=== PATIENT | male | born 1935 | race Caucasian/White ===

== ENCOUNTER 2019-04-05 21:48 | Emergency (ER) | payer MEDICARE ==
[2019-04-05] MEDS ORDERED: SODIUM CHLORIDE 0.9% 500ML 500 ML IV ONE (22:43)
[2019-04-05 23:01] LABS: BASOPHILS % (AUTO) 0.6 % (0.0-5.0); EOSINOPHILS % (AUTO) 0.8 % (0.0-8.0); HEMATOCRIT 41.8 % (42-54); LYMPHOCYTES % (AUTO) 16.8 % (21.0-51.0); MEAN CORPUSCULAR HEMOGLOBIN 28.6 pg (27.0-33.0); MEAN CORPUSCULAR HGB CONC 32.9 g/dL (32.0-36.0); MEAN CORPUSCULAR VOLUME 86.7 fL (79-99); MONOCYTES % (AUTO) 12.4 % (3.0-13.0); NEUTROPHILS % (AUTO) 69.4 % (40.0-77.0); PLATELET COUNT (AUTO) 452 K/uL (130-400); RED BLOOD CELL COUNT(AUTO) 4.82 MIL/uL (4.50-6.20); RED CELL DISTRIBUTION WIDTH 14.2 % (11.0-15.5); WHITE BLOOD COUNT (AUTO) 9.5 K/uL (4.8-10.8)
[2019-04-05 23:12] LABS: CREATININE 1.4 mg/dL (0.5-1.5); POTASSIUM 4.1 mmol/L (3.5-5.1)
[2019-04-05 23:15] LABS: INR 0.94 (0.85-1.15); PARTIAL THROMBOPLASTIN TIME 30.1 SEC (26.3-35.5); PROTHROMBIN TIME 9.9 SEC (9.6-11.6)
[2019-04-05 23:16] LABS: ALBUMIN 3.7 g/dL (3.5-5.0); BILIRUBIN,TOTAL 0.5 mg/dL (0.2-1.0); TOTAL PROTEIN, SERUM 7.6 g/dL (6.0-8.3)
[2019-04-05 23:39] LABS: B-TYPE NATRIURETIC PEPTIDE 103 pg/mL (0-100)
[2019-04-05 23:43] LABS: APPEARANCE,URINE Clear (CLEAR); BILIRUBIN,URINE Negative (NEGATIVE); COLOR,URINE Yellow (YELLOW); GLUCOSE, URINE (UA) Negative (NEGATIVE); KETONES,URINE Negative (NEGATIVE); LEUKOCYTE ESTERASE ,URINE Small (NEGATIVE); NITRATE,URINE Negative (NEGATIVE); OCCULT BLOOD,URINE Negative (NEGATIVE); PROTEIN,URINE Negative (NEGATIVE)
[2019-04-05 23:51] LABS: BACTERIA,URINE None Seen /HPF (None Seen); RBC,URINE 0-1 /HPF (0-1); SQUAMOUS EPITHELIAL CELL,UR Rare /HPF (0-2); WBC,URINE 0-1 /HPF (0-1)
[2019-04-06] MEDS ORDERED: IOHEXOL-350 75 ML VIAL IV ONE (00:10)
[2019-04-06] MEDS ORDERED: KETOROLAC TROMETHAMINE 15MG/ML ONE (00:59)
[2019-04-06] MEDS ORDERED: TAMSULOSIN HCL 0.4 MG CAP.ER.24H ONE (00:59)
== END 2019-04-06 01:42 | disposition home or self-care (01) ==
LOC: EDH 21:48
DX: N13.39 Other hydronephrosis (principal); N23 Unspecified renal colic; Z98.890 Other specified postprocedural states
CPT/HCPCS: 36415; 74177; 80053; 81001; 82550; 83605; 83690; 83880; 84484; 85025; 85610; 85730; 93005; 96374; 99285; J1885; J7040; Q9967

== ENCOUNTER 2019-04-14 07:58 | Day surgery (SDC) | payer MEDICARE ==
[2019-04-11 12:15] VITALS: BP 146/67
[2019-04-11 13:06] LABS: APPEARANCE,URINE Clear (CLEAR); BILIRUBIN,URINE Negative (NEGATIVE); COLOR,URINE Yellow (YELLOW); GLUCOSE, URINE (UA) Negative (NEGATIVE); KETONES,URINE Negative (NEGATIVE); LEUKOCYTE ESTERASE ,URINE Moderate (NEGATIVE); NITRATE,URINE Negative (NEGATIVE); OCCULT BLOOD,URINE Negative (NEGATIVE); PROTEIN,URINE Negative (NEGATIVE)
[2019-04-11 13:08] LABS: RBC,URINE 0-1 /HPF (0-1)
[2019-04-11 13:09] LABS: BACTERIA,URINE Rare /HPF (None Seen); SQUAMOUS EPITHELIAL CELL,UR Rare /HPF (0-2)
--- NOTE | 2019-04-12 14:07 | NUR ---
ABNORMAL EKG INFORMED DR ZENG REGARDING ABNORMAL EKG RESULTS. OK TO PROCEED WITH PROCEDURE PER DR ZENG.
[~2019-04-14] VITALS: Ht 179.1 cm; Wt 70.6 kg
[2019-04-14] VITALS (18 sets, daily range): BP systolic 118–162; BP diastolic 56–70
[~2019-04-14 07:58] MED LIST: GENTAMICIN 80 MG/NS 100 ML PB 100 ML IV SCH
[2019-04-14] MEDS ORDERED: IOHEXOL-350 50ML VIAL IV ONE (08:23)
[2019-04-14] MEDS ORDERED: LACTATED RINGERS 1000ML 1,000 ML IV ONE (08:28)
[2019-04-14] MEDS: CEFTRIAXONE SODIUM 1 GM IVP SCH ×2 (08:30→09:55)
--- NOTE | 2019-04-14 09:01 | NUR ---
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
[2019-04-14] MEDS ORDERED: PRAV40TA3 PO (09:04)
[2019-04-14] MEDS ORDERED: TAMS-1 PO (09:05)
[2019-04-14] MEDS ORDERED: LEVO500T89 PO (09:06)
[2019-04-14] MEDS ORDERED: DICY20 PO (09:07)
[2019-04-14] MEDS ORDERED: LIDOCAINE PF 2% 5ML ABBOJECT ONE ×2 (09:07→09:48)
[2019-04-14] MEDS ORDERED: FENTANYL CITRATE PF 50 MCG/1 ML 2ML VIAL ONE (09:08)
[2019-04-14] MEDS ORDERED: PROPOFOL 10 MG/ML 20ML VIAL IV ONE (09:08)
[2019-04-14] MEDS ORDERED: MIDAZOLAM HCL 1 MG/ML 2ML VIAL ONE (09:08)
[2019-04-14] MEDS ORDERED: PHENYLEPHRINE HCL 10 MG/ML 1ML VIAL IV ONE (09:12)
[2019-04-14] MEDS ORDERED: EPHEDRINE SULFATE 50 MG/ML AMPULE ONE (10:13)
--- NOTE | 2019-04-14 12:35 | NUR ---
PATIENT WAS ABLE TO VOID WITHOUT DIFFICULTY.PT WAS ASSISTED TO CHANGE INTO HIS CLOTHES.
== END 2019-04-14 12:45 | disposition home or self-care (01) ==
LOC: DAH 07:58
PROVIDERS: ATTEND Urology
DX: N13.0 Hydronephrosis with ureteropelvic junction obstruction (principal); N40.1 Benign prostatic hyperplasia with lower urinary tract symptoms; N13.8 Other obstructive and reflux uropathy; Z79.2 Long term (current) use of antibiotics; Z79.899 Other long term (current) drug therapy; Z87.891 Personal history of nicotine dependence; Z72.89 Other problems related to lifestyle; F15.90 Other stimulant use, unspecified, uncomplicated; Z98.890 Other specified postprocedural states; Z85.46 Personal history of malignant neoplasm of prostate
CPT/HCPCS: 52332; 55700; 71045; 74420; 76942; 81001; 87088; 88305; 93005; 96365; A4215; A4344; A4358; A4600; A5113; C1758; C1769; C2617; J0696; J1580; J2001 ×2; J2250; J2370; J2704; J3010; J3490; J7120 ×2; Q9967

== ENCOUNTER 2019-09-15 07:58 | Day surgery (SDC) | payer MEDICARE ==
[2019-09-13 17:00] VITALS: BP 140/69
[2019-09-13 17:05] LABS: BASOPHILS % (AUTO) 0.4 % (0.0-5.0); EOSINOPHILS % (AUTO) 0.4 % (0.0-8.0); HEMATOCRIT 40.5 % (42-54); LYMPHOCYTES % (AUTO) 31.4 % (21.0-51.0); MEAN CORPUSCULAR HEMOGLOBIN 28.6 pg (27.0-33.0); MEAN CORPUSCULAR VOLUME 86.5 fL (79-99); MONOCYTES % (AUTO) 10.7 % (3.0-13.0); NEUTROPHILS % (AUTO) 57.1 % (40.0-77.0); PLATELET COUNT (AUTO) 466 K/uL (130-400); RED BLOOD CELL COUNT(AUTO) 4.68 MIL/uL (4.50-6.20); RED CELL DISTRIBUTION WIDTH 13.9 % (11.0-15.5); WHITE BLOOD COUNT (AUTO) 5.8 K/uL (4.8-10.8)
[2019-09-13 17:17] LABS: APPEARANCE,URINE CLOUDY (CLEAR); BILIRUBIN,URINE NEGATIVE (NEGATIVE); COLOR,URINE YELLOW (YELLOW); GLUCOSE, URINE (UA) NEGATIVE (NEGATIVE); KETONES,URINE NEGATIVE (NEGATIVE); LEUKOCYTE ESTERASE ,URINE MODERATE (NEGATIVE); NITRATE,URINE NEGATIVE (NEGATIVE); OCCULT BLOOD,URINE LARGE (NEGATIVE); PH,URINE 5.5 (5.0-8.0); PROTEIN,URINE 100 mg/dL (NEGATIVE); UROBILINOGEN,URINE 0.2 mg/dL (0.2-1.0)
[2019-09-13 17:21] LABS: CREATININE 1.5 mg/dL (0.5-1.5)
[2019-09-13 17:23] LABS: BACTERIA,URINE Few /HPF (None Seen)
[2019-09-13 17:24] LABS: SQUAMOUS EPITHELIAL CELL,UR Few /HPF (0-2)
--- NOTE | 2019-09-14 10:26 | NUR ---
BUD OK PER DR. ZENG.
[2019-09-14] MEDS: CEFTRIAXONE SODIUM 1 GM IVP SCH (10:45)
[~2019-09-15] VITALS: Ht 177.8 cm; Wt 68.8 kg
[2019-09-15] VITALS (23 sets, daily range): BP systolic 120–160; BP diastolic 50–88
[~2019-09-15 07:58] MED LIST changes: -GENTAMICIN 80 MG/NS 100 ML PB 100 ML IV SCH; +PRAV20TA4 PO
[2019-09-15] MEDS ORDERED: LACTATED RINGERS 1000ML 1,000 ML IV ONE (08:17)
[2019-09-15] MEDS ORDERED: ROCURONIUM 10MG/1ML SYR 10 MG/ML ML ONE (09:20)
[2019-09-15] MEDS ORDERED: DEXAMETHASONE SOD PHOSPHATE 10MG/ML 1ML VIAL ONE (09:20)
[2019-09-15] MEDS ORDERED: ONDANSETRON HCL 4 MG/2 ML VIAL ONE (09:20)
[2019-09-15] MEDS ORDERED: NEOSTIGMINE 5MG/5ML SYR IV ONE (09:20)
[2019-09-15] MEDS ORDERED: PROPOFOL 10 MG/ML 20ML VIAL IV ONE (09:20)
[2019-09-15] MEDS ORDERED: GLYCOPYRROLATE 1 MG/5 ML SYRINGE ONE (09:20)
[2019-09-15] MEDS ORDERED: LIDOCAINE PF 2% 5ML ABBOJECT ONE (09:20)
[2019-09-15] MEDS ORDERED: IOHEXOL-350 50ML VIAL IV ONE (09:38)
[2019-09-15] MEDS: CEFTRIAXONE SODIUM 1 GM IVP SCH (09:44)
[2019-09-15] MEDS ORDERED: ATROPINE SULFATE 0.1 MG/ML 10 ML SYG IVP ONE (10:50)
== END 2019-09-15 12:29 | disposition home or self-care (01) ==
LOC: DAH 07:58
PROVIDERS: ATTEND Urology
DX: N13.5 Crossing vessel and stricture of ureter without hydronephrosis (principal); N32.0 Bladder-neck obstruction; E78.5 Hyperlipidemia, unspecified; I10 Essential (primary) hypertension; Z85.46 Personal history of malignant neoplasm of prostate; Z72.89 Other problems related to lifestyle; Z79.899 Other long term (current) drug therapy
CPT/HCPCS: 36415; 52332; 71045; 74420; 80048; 81001; 84153; 84154; 85025; 87088; 88300; 93005 ×2; 96365; A4215; A4221; A4222; A4223; A4358; A4663; A4930; A6260; C1758; C1769; C2617; J0696; J1100; J2001; J2405; J2704; J2710; J3490; J7120 ×2; Q9967; J0461

== ENCOUNTER 2019-09-15 18:11 | Emergency (ER) | payer MEDICARE ==
[2019-09-15] MEDS ORDERED: SODIUM CHLORIDE 0.9% 1000ML 1,000 ML IV ONE (19:34)
[2019-09-15] MEDS ORDERED: ACETAMINOPHEN EXTRA STRENGTH 500 MG TABLET ONE (19:35)
[2019-09-15 19:51] LABS: APPEARANCE,URINE Clear (CLEAR); BILIRUBIN,URINE Negative (NEGATIVE); COLOR,URINE Yellow (YELLOW); GLUCOSE, URINE (UA) Negative (NEGATIVE); KETONES,URINE Negative (NEGATIVE); LEUKOCYTE ESTERASE ,URINE Moderate (NEGATIVE); NITRATE,URINE Negative (NEGATIVE); OCCULT BLOOD,URINE Moderate (NEGATIVE); PH,URINE 5.5 (5.0-8.0); PROTEIN,URINE POS 2+ mg/dL (NEGATIVE); UROBILINOGEN,URINE 0.2 mg/dL (0.2-1.0)
[2019-09-15 19:56] LABS: BASOPHILS % (AUTO) 0.3 % (0.0-5.0); HEMATOCRIT 42.4 % (42-54); LYMPHOCYTES % (AUTO) 2.3 % (21.0-51.0); MEAN CORPUSCULAR HEMOGLOBIN 28.3 pg (27.0-33.0); MEAN CORPUSCULAR HGB CONC 33.3 g/dL (32.0-36.0); MEAN CORPUSCULAR VOLUME 85.1 fL (79-99); MONOCYTES % (AUTO) 3.1 % (3.0-13.0); NEUTROPHILS % (AUTO) 94.3 % (40.0-77.0); NUCLEATED RED BLOOD CELLS 0.1 % (0.0-0.19); PLATELET COUNT (AUTO) 419 K/uL (130-400); RED BLOOD CELL COUNT(AUTO) 4.98 MIL/uL (4.50-6.20); RED CELL DISTRIBUTION WIDTH 13.9 % (11.0-15.5); WHITE BLOOD COUNT (AUTO) 16.4 K/uL (4.8-10.8)
[2019-09-15 20:01] LABS: BACTERIA,URINE Few /HPF (None Seen); MUCUS,URINE None Seen LPF (None Seen); SQUAMOUS EPITHELIAL CELL,UR 0-2 /HPF (0-2)
[2019-09-15 20:02] LABS: INR 1.02 (0.85-1.15); PARTIAL THROMBOPLASTIN TIME 24.5 SEC (26.3-35.5); PROTHROMBIN TIME 10.7 SEC (9.6-11.6)
[2019-09-15 20:03] LABS: CREATININE 1.4 mg/dL (0.5-1.5); POTASSIUM 3.9 mmol/L (3.5-5.1)
[2019-09-15 20:07] LABS: ALBUMIN 3.4 g/dL (3.5-5.0); BILIRUBIN,TOTAL 0.8 mg/dL (0.2-1.0); TOTAL PROTEIN, SERUM 7.6 g/dL (6.0-8.3)
[2019-09-15] MEDS ORDERED: CEFTRIAXONE SODIUM 1 GM ONE (20:36)
== END 2019-09-15 21:57 | disposition home or self-care (01) ==
LOC: EDH 18:11
DX: R50.9 Fever, unspecified (principal)
CPT/HCPCS: 36415; 71045; 80053; 81001; 82550; 83605; 84484; 85025; 85610; 85730; 87040 ×2; 87088; 87804 ×2; 93005; 96374; 99285; J0696; J7030

== ENCOUNTER 2020-01-19 08:52 | Day surgery (SDC) | payer MEDICARE ==
[2020-01-09 13:13] LABS: BASOPHILS % (AUTO) 0.6 % (0.0-5.0); HEMATOCRIT 41.4 % (42-54); LYMPHOCYTES % (AUTO) 25.3 % (21.0-51.0); MEAN CORPUSCULAR HGB CONC 30.9 g/dL (32.0-36.0); MEAN CORPUSCULAR VOLUME 87.3 fL (79-99); MONOCYTES % (AUTO) 8.3 % (3.0-13.0); NEUTROPHILS % (AUTO) 64.2 % (40.0-77.0); PLATELET COUNT (AUTO) 535 K/uL (130-400); RED BLOOD CELL COUNT(AUTO) 4.74 MIL/uL (4.50-6.20); RED CELL DISTRIBUTION WIDTH 13.5 % (11.0-15.5)
[2020-01-09 13:21] LABS: CREATININE 1.5 mg/dL (0.5-1.5); POTASSIUM 4.3 mmol/L (3.5-5.1)
[2020-01-09 13:40] LABS: APPEARANCE,URINE CLOUDY (CLEAR); BILIRUBIN,URINE NEGATIVE (NEGATIVE); COLOR,URINE YELLOW (YELLOW); GLUCOSE, URINE (UA) NEGATIVE (NEGATIVE); KETONES,URINE NEGATIVE (NEGATIVE); LEUKOCYTE ESTERASE ,URINE LARGE (NEGATIVE); NITRATE,URINE NEGATIVE (NEGATIVE); OCCULT BLOOD,URINE LARGE (NEGATIVE); PH,URINE 7.5 (5.0-8.0); PROTEIN,URINE 100 mg/dL (NEGATIVE); UROBILINOGEN,URINE 0.2 mg/dL (0.2-1.0)
[2020-01-09 13:47] LABS: BACTERIA,URINE Few /HPF (None Seen); SQUAMOUS EPITHELIAL CELL,UR Few /HPF (0-2); WBC,URINE >100 /HPF (0-1)
[2020-01-09 13:55] VITALS: BP 144/60
--- NOTE | 2020-01-11 15:45 | NUR ---
LABS ABNORMAL URINE REPORTED TO DR. SOTO, MESSAGE LEFT WITH JANN, URINE REPORT FAX TO DR SOTO PER HIS REQUEST . INFORMED THEM TO CALL US BACK IF ANY FURTHER ORDERS.
--- NOTE | 2020-01-11 16:07 | NUR ---
EKG ABNORMAL EKG REPORTED TO DR. SÁNCHEZ, NO FURTHER ORDERS GIVEN OK TO PROCEED WITH PLANNED SURGERY. 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
--- NOTE | 2020-01-12 08:45 | NUR ---
PATIENT CANCEL PER DR FINGER DUE RESISTANT TO PREOP ANTIBIOTIC GIVEN FOR 2 DAYS PRIOR TO SURGERY, DIS AMBULATOR
[2020-01-18 13:47] LABS: APPEARANCE,URINE Clear (CLEAR); BILIRUBIN,URINE Negative (NEGATIVE); COLOR,URINE Yellow (YELLOW); GLUCOSE, URINE (UA) Negative (NEGATIVE); KETONES,URINE Negative (NEGATIVE); LEUKOCYTE ESTERASE ,URINE Moderate (NEGATIVE); NITRATE,URINE Negative (NEGATIVE); OCCULT BLOOD,URINE Small (NEGATIVE); PROTEIN,URINE POS 1+ mg/dL (NEGATIVE); UROBILINOGEN,URINE 0.2 mg/dL (0.2-1.0)
[2020-01-18 14:04] LABS: BACTERIA,URINE Rare /HPF (None Seen); RBC,URINE 0-1 /HPF (0-1)
[2020-01-18 14:05] LABS: SQUAMOUS EPITHELIAL CELL,UR Rare /HPF (0-2)
--- NOTE | 2020-01-18 14:19 | NUR ---
LABS ABNORMAL URINE REPORTED AND FAX TO DR. SOTO. PENDING FURTHER ORDERS IF ANY
--- NOTE | 2020-01-18 14:37 | NUR ---
URINE VERIFIED THAT PT TOOK 7 DAYS OF LEVAQUIN, PER YUVAL AT DR SOTO'S OFFICE NO NEW ORDERS ON ABNORMAL URINE REPORTED TO DR. SOTO TODAY
[~2020-01-19] VITALS: Ht 177.8 cm; Wt 69.2 kg
[2020-01-19] VITALS (15 sets, daily range): BP systolic 101–146; BP diastolic 53–77
[~2020-01-19 08:52] MED LIST changes: +CEFTRIAXONE SODIUM 1 GM IVP SCH; +LACTATED RINGERS 1000ML 1,000 ML IV ONE
[2020-01-19] MEDS ORDERED: LACTATED RINGERS 1000ML 1,000 ML IV ONE (09:25)
[2020-01-19] MEDS: CEFTRIAXONE SODIUM 1 GM ONE ×2 (09:34→13:32)
[2020-01-19] MEDS ORDERED: IOHEXOL-350 50ML VIAL IV ONE (09:42)
[2020-01-19] MEDS ORDERED: GENTAMICIN SULFATE 320 MG in SODIUM CHLORIDE 0.9% 100 ML IV PRN (11:30)
[2020-01-19] MEDS ORDERED: PROPOFOL 10 MG/ML 20ML VIAL IV ONE (13:15)
[2020-01-19] MEDS ORDERED: LIDOCAINE PF 2% 5ML ABBOJECT ONE (13:15)
[2020-01-19] MEDS ORDERED: GLYCOPYRROLATE 1 MG/5 ML SYRINGE ONE (13:43)
[2020-01-19] MEDS ORDERED: ONDANSETRON HCL 4 MG/2 ML VIAL ONE (13:48)
--- NOTE | 2020-01-19 14:50 | NUR ---
post op received pt post op. pt a/o x3 in no distress. will continue to monitor pt until discharge. pt oriented to room and call light with in reach
--- NOTE | 2020-01-19 15:20 | NUR ---
discharge pt taken out via w/c in no distress by joe griffin. pt and spouse given bacitracin and discharge instructions
[2020-05-16] MEDS ORDERED: LEVO500T2 PO (10:27)
== END 2020-01-19 15:30 | disposition home or self-care (01) ==
LOC: DAH 08:52
PROVIDERS: ATTEND Urology
DX: N13.1 Hydronephrosis with ureteral stricture, not elsewhere classified (principal); E78.5 Hyperlipidemia, unspecified; Z85.46 Personal history of malignant neoplasm of prostate
CPT/HCPCS: 36415; 52332; 74018; 80048; 81001 ×2; 84153; 84154; 85025; 87077 ×2; 87088 ×2; 87186 ×2; 93005; 96365; A4213; A4215; A4221; A4222; A4223 ×2; A4600; A4663; A4930; A6260; C1758; C1769; C2617; J0696; J2001; J2405; J2704; J3490; J7030; J7120 ×2; Q9967

== ENCOUNTER 2020-05-17 07:10 | Day surgery (SDC) | payer MEDICARE ==
[2020-05-11 15:56] LABS: BASOPHILS % (AUTO) 0.4 % (0.0-5.0); EOSINOPHILS % (AUTO) 1.2 % (0.0-8.0); HEMATOCRIT 44.4 % (42-54); MEAN CORPUSCULAR VOLUME 87.4 fL (79-99); MONOCYTES % (AUTO) 8.7 % (3.0-13.0); NEUTROPHILS % (AUTO) 65.3 % (40.0-77.0); PLATELET COUNT (AUTO) 498 K/uL (130-400); RED BLOOD CELL COUNT(AUTO) 5.08 MIL/uL (4.50-6.20); RED CELL DISTRIBUTION WIDTH 13.5 % (11.0-15.5); WHITE BLOOD COUNT (AUTO) 7.4 K/uL (4.8-10.8)
[2020-05-11 16:05] LABS: CREATININE 1.3 mg/dL (0.5-1.5); POTASSIUM 4.8 mmol/L (3.5-5.1)
[2020-05-11 16:39] LABS: APPEARANCE,URINE Clear (CLEAR); BILIRUBIN,URINE Negative (NEGATIVE); COLOR,URINE Yellow (YELLOW); GLUCOSE, URINE (UA) Negative (NEGATIVE); KETONES,URINE Negative (NEGATIVE); LEUKOCYTE ESTERASE ,URINE Moderate (NEGATIVE); NITRATE,URINE Negative (NEGATIVE); OCCULT BLOOD,URINE Large (NEGATIVE); PROTEIN,URINE POS 1+ mg/dL (NEGATIVE); UROBILINOGEN,URINE 0.2 mg/dL (0.2-1.0)
[2020-05-11 16:55] LABS: BACTERIA,URINE Few /HPF (None Seen); SQUAMOUS EPITHELIAL CELL,UR Few /HPF (0-2)
[2020-05-16 10:22] VITALS: BP 148/72
--- NOTE | 2020-05-16 10:26 | NUR ---
RE: URINALYSIS FAXED URINE RESULTS TO DR SOTO;'S OFFICE FOR REVIEW. WILL WAIT FOR ANY NEW ORDERS,RESPONSE FROM DR SOTO.
--- NOTE | 2020-05-16 10:30 | NUR ---
report called dr henriquez and spoke to ramírez his nurse for clarification of diagnosis and to see if md aware of urine. pt on levaquin already so is good to proceed with surgery and to use diagnosis from [facility]
[~2020-05-17] VITALS: Ht 177.8 cm; Wt 69.8 kg
[2020-05-17] VITALS (17 sets, daily range): BP systolic 106–157; BP diastolic 48–77
[~2020-05-17 07:10] MED LIST changes: +CEFAZOLIN SODIUM 1 GM VIAL IVP SCH; -CEFTRIAXONE SODIUM 1 GM IVP SCH; -LACTATED RINGERS 1000ML 1,000 ML IV ONE; +LEVO500T2 PO
[2020-05-17] MEDS ORDERED: CEFTRIAXONE SODIUM 1 GM ONE (07:29)
[2020-05-17] MEDS ORDERED: LACTATED RINGERS 1000ML 1,000 ML IV ONE (07:30)
[2020-05-17] MEDS ORDERED: IOHEXOL-350 50ML VIAL IV ONE (08:01)
[2020-05-17] MEDS ORDERED: LIDOCAINE PF 2% 5ML ABBOJECT ONE (09:02)
[2020-05-17] MEDS ORDERED: SUCCINYLCHOLINE 200MG/10ML SYR ONE (09:02)
[2020-05-17] MEDS ORDERED: PROPOFOL 10 MG/ML 20ML VIAL IV ONE (09:03)
[2020-05-17] MEDS ORDERED: FENTANYL CITRATE PF 50 MCG/1 ML 2ML VIAL ONE (09:03)
[2020-05-17] MEDS ORDERED: GLYCOPYRROLATE 1 MG/5 ML SYRINGE ONE (09:37)
[2020-05-17] MEDS ORDERED: ONDANSETRON HCL 4 MG/2 ML VIAL ONE (09:52)
--- NOTE | 2020-05-17 11:10 | NUR ---
PATIENT ARRIVED TO DAY PATIENT VIA STRETCHER BY CHRISTIAN ROBERTS RN. PATIENT AAOX3, RESPIRATIONS UNLABORED, VITAL SIGNS STABLE, DENIES ANY PAIN AT THIS TIME.
--- NOTE | 2020-05-17 11:30 | NUR ---
DISCHARGE INSTRUCTIONS PROVIDED TO PATIENT'S (CHRISTIANO QUINN). FOLLOW UP APPOINTMENT PROVIDED AND HANDOUTS/INSTRUCTIONS PROVIDED TO PATIENT. ALL QUESTIONS/CONCERNS ADDRESSED.
== END 2020-05-17 11:45 | disposition home or self-care (01) ==
LOC: DAH 07:10
PROVIDERS: ATTEND Urology
DX: N13.30 Unspecified hydronephrosis (principal); Z85.46 Personal history of malignant neoplasm of prostate; Z11.59 Encounter for screening for other viral diseases; E78.5 Hyperlipidemia, unspecified; Z79.899 Other long term (current) drug therapy
CPT/HCPCS: 36415; 52332; 74018; 80048; 81001; 84153; 85025; 87088; A4213; A4215; A4221; A4222; A4223; A4358; A4600; A4663; A6260; C1758; C1769; C2617; J0330; J0696; J2001; J2405; J2704; J3010; J3490; J7120 ×2; U0003; Q9967

== ENCOUNTER 2020-10-04 07:06 | Day surgery (SDC) | payer MEDICARE ==
[2020-09-28 11:46] LABS: BASOPHILS % (AUTO) 0.4 % (0.0-5.0); EOSINOPHILS % (AUTO) 0.8 % (0.0-8.0); HEMATOCRIT 44.5 % (42-54); LYMPHOCYTES % (AUTO) 26.4 % (21.0-51.0); MEAN CORPUSCULAR HEMOGLOBIN 28.4 pg (27.0-33.0); MEAN CORPUSCULAR HGB CONC 32.4 g/dL (32.0-36.0); MEAN CORPUSCULAR VOLUME 87.8 fL (79-99); MONOCYTES % (AUTO) 9.2 % (3.0-13.0); NEUTROPHILS % (AUTO) 62.7 % (40.0-77.0); PLATELET COUNT (AUTO) 423 K/uL (130-400); RED BLOOD CELL COUNT(AUTO) 5.07 MIL/uL (4.50-6.20); RED CELL DISTRIBUTION WIDTH 13.4 % (11.0-15.5); WHITE BLOOD COUNT (AUTO) 7.3 K/uL (4.8-10.8)
[2020-09-28 11:51] LABS: APPEARANCE,URINE Clear (CLEAR); BILIRUBIN,URINE Negative (NEGATIVE); COLOR,URINE Yellow (YELLOW); GLUCOSE, URINE (UA) Negative (NEGATIVE); KETONES,URINE Negative (NEGATIVE); LEUKOCYTE ESTERASE ,URINE Trace (NEGATIVE); NITRATE,URINE Negative (NEGATIVE); OCCULT BLOOD,URINE Negative (NEGATIVE); PROTEIN,URINE Negative (NEGATIVE); UROBILINOGEN,URINE 0.2 mg/dL (0.2-1.0)
[2020-09-28 12:02] LABS: CREATININE 1.2 mg/dL (0.5-1.5); POTASSIUM 4.7 mmol/L (3.5-5.1)
[2020-09-28 12:31] LABS: BACTERIA,URINE None Seen /HPF (None Seen); RBC,URINE 0-1 /HPF (0-1); SQUAMOUS EPITHELIAL CELL,UR 0-2 /HPF (0-2); WBC,URINE 0-1 /HPF (0-1)
[2020-10-03 11:14] VITALS: BP 144/70
--- NOTE | 2020-10-03 12:35 | NUR ---
RE: ABNORMAL URINALYSIS/URINE CULTURE RESULTS FAXED RESULTS TO DR SOTO (ESTELA WOOD/JANN) FOR DR SOTO TO REVIEW.
[2020-10-04] VITALS (17 sets, daily range): BP systolic 87–152; BP diastolic 53–77
[~2020-10-04] VITALS: Ht 177.8 cm; Wt 70.9 kg
[2020-10-04] MEDS: CEFTRIAXONE SODIUM 1 GM IVP SCH ×2 (06:00→08:40)
[~2020-10-04 07:06] MED LIST changes: -CEFAZOLIN SODIUM 1 GM VIAL IVP SCH; -LEVO500T2 PO; +PRAV10TA39 PO; -PRAV20TA4 PO
[2020-10-04] MEDS ORDERED: LACTATED RINGERS 1000ML 1,000 ML IV ONE (07:22)
[2020-10-04] MEDS ORDERED: LEVAQUIN PO (08:27)
[2020-10-04] MEDS ORDERED: PROPOFOL 10 MG/ML 20ML VIAL IV ONE (08:29)
[2020-10-04] MEDS ORDERED: LIDOCAINE PF 2% 5ML ABBOJECT ONE (08:29)
[2020-10-04] MEDS ORDERED: GLYCOPYRROLATE 1 MG/5 ML SYRINGE ONE (08:52)
[2020-10-04] MEDS ORDERED: EPINEPHRINE 1 MG/ML AMPULE ONE (08:53)
[2020-10-04] MEDS ORDERED: IOHEXOL-350 50ML VIAL IV ONE (08:57)
[2020-10-04] MEDS ORDERED: EPHEDRINE SULFATE 50 MG/ML AMPULE ONE (08:58)
[2020-10-04] MEDS ORDERED: ONDANSETRON HCL 4 MG/2 ML VIAL ONE (09:10)
--- NOTE | 2020-10-04 10:20 | NUR ---
POST OP RECEIVED PT AND REPORT JUDY JAMES RN FROM PACU. PT IN NO DISTRESS. PT ORIENTED TO ROOM AND CALL LIGHT. WILL CONTINUE TO MONITOR PT. NO BLEEDING FROM MEATUS NOTED
--- NOTE | 2020-10-04 10:50 | NUR ---
DISCHARGE PT AND SPOUSE GIVEN D/C INSTRUCTIONS. BOTH VOICED UNDERSTANDING. PT TAKEN OUT VIA W/C BY JERRY OLIVEIRA IN NO DISTRESS
== END 2020-10-04 10:50 | disposition home or self-care (01) ==
LOC: DAH 07:06
PROVIDERS: ATTEND Urology
DX: N13.5 Crossing vessel and stricture of ureter without hydronephrosis (principal); Z20.828 Contact with and (suspected) exposure to other viral communicable diseases; C61 Malignant neoplasm of prostate; N32.0 Bladder-neck obstruction; E78.5 Hyperlipidemia, unspecified; Z85.46 Personal history of malignant neoplasm of prostate; Z98.890 Other specified postprocedural states; Z87.891 Personal history of nicotine dependence
CPT/HCPCS: 36415; 52332; 74018; 80048; 81001; 84153; 84154; 85025; 87088; A4215; A4221; A4222; A4223; A4358; A4600; A4663; A6260; C1769; C2617; C9803; J0171; J0696; J2001; J2405; J2704; J3490 ×2; J7120 ×2; U0003; Q9967

== ENCOUNTER 2021-03-14 07:20 | Observation (INO) | payer MEDICARE ==
[2021-03-08 11:36] LABS: CREATININE 1.2 mg/dL (0.5-1.5); POTASSIUM 4.8 mmol/L (3.5-5.1)
[2021-03-08 13:09] LABS: APPEARANCE,URINE Clear (CLEAR); BILIRUBIN,URINE Negative (NEGATIVE); COLOR,URINE Yellow (YELLOW); GLUCOSE, URINE (UA) Negative (NEGATIVE); KETONES,URINE Negative (NEGATIVE); LEUKOCYTE ESTERASE ,URINE Trace (NEGATIVE); NITRATE,URINE Negative (NEGATIVE); OCCULT BLOOD,URINE Large (NEGATIVE); PROTEIN,URINE POS 1+ mg/dL (NEGATIVE); UROBILINOGEN,URINE 0.2 mg/dL (0.2-1.0)
[2021-03-08 13:35] LABS: RBC,URINE >100 /HPF (0-1)
[2021-03-08 13:36] LABS: BACTERIA,URINE Rare /HPF (None Seen); SQUAMOUS EPITHELIAL CELL,UR Rare /HPF (0-2); WBC,URINE 0-1 /HPF (0-1)
[2021-03-13 11:57] VITALS: BP 146/67
[~2021-03-14] VITALS: Ht 177.8 cm; Wt 68.0 kg
[2021-03-14] VITALS (30 sets, daily range): BP systolic 47–165; BP diastolic 19–83
[2021-03-14] MEDS ORDERED: LACTATED RINGERS 1000ML 1,000 ML IV ONE ×2 (07:55→14:17)
[2021-03-14] MEDS ORDERED: LEVOFLOXACIN 500 MG/D5W 100 ML 100 ML IV PRN (08:00)
[2021-03-14] MEDS ORDERED: IOHEXOL-350 50ML VIAL IV ONE (08:00)
[2021-03-14 08:07] LABS: BASOPHILS % (AUTO) 0.6 % (0.0-5.0); EOSINOPHILS % (AUTO) 3.3 % (0.0-8.0); HEMATOCRIT 44.6 % (42-54); LYMPHOCYTES % (AUTO) 43.4 % (21.0-51.0); MEAN CORPUSCULAR HEMOGLOBIN 28.6 pg (27.0-33.0); MEAN CORPUSCULAR HGB CONC 32.1 g/dL (32.0-36.0); MEAN CORPUSCULAR VOLUME 89.2 fL (79-99); MONOCYTES % (AUTO) 12.8 % (3.0-13.0); NEUTROPHILS % (AUTO) 39.3 % (40.0-77.0); PLATELET COUNT (AUTO) 432 K/uL (130-400); RED CELL DISTRIBUTION WIDTH 13.6 % (11.0-15.5); WHITE BLOOD COUNT (AUTO) 6.7 K/uL (4.8-10.8)
[2021-03-14] MEDS: CEFTRIAXONE SODIUM 1 GM IVP ONE ×2 (08:23→08:55)
[2021-03-14] MEDS ORDERED: SUCCINYLCHOLINE 200MG/10ML SYR ONE (08:27)
[2021-03-14] MEDS ORDERED: LIDOCAINE PF 2% 5ML ABBOJECT ONE (08:27)
[2021-03-14] MEDS ORDERED: DEXAMETHASONE SOD PHOSPHATE 10MG/ML 1ML VIAL ONE (08:27)
[2021-03-14] MEDS ORDERED: ONDANSETRON HCL 4 MG/2 ML VIAL ONE (08:28)
[2021-03-14] MEDS ORDERED: GLYCOPYRROLATE 1 MG/5 ML SYRINGE ONE (08:28)
[2021-03-14] MEDS ORDERED: NEOSTIGMINE 5MG/5ML SYR IV ONE (08:28)
[2021-03-14] MEDS ORDERED: PROPOFOL 10 MG/ML 20ML VIAL IV ONE (08:28)
[2021-03-14] MEDS ORDERED: FENTANYL CITRATE PF 50 MCG/1 ML 2ML VIAL ONE (08:29)
[2021-03-14] MEDS ORDERED: ROCURONIUM 10MG/1ML SYR 10 MG/ML ML ONE (08:29)
[2021-03-15 04:00] VITALS: BP 118/68
[2021-03-15 05:51] LABS: CREATININE 1.2 mg/dL (0.5-1.5); MAGNESIUM 1.8 mg/dL (1.80-2.40); POTASSIUM 4.2 mmol/L (3.5-5.1)
[2021-03-15] MEDS ORDERED: MAGNESIUM 2GM PREMIX 50ML 50 ML IV PRN (06:00)
[2021-03-15] MEDS ORDERED: ACETAMINOPHEN 325 MG TAB PO PRN (06:15)
[2021-03-15] MEDS ORDERED: ONDANSETRON HCL 4 MG/2 ML VIAL IVP PRN (06:15)
[2021-03-15 07:58] VITALS: BP 148/80
[2021-03-15] MEDS ORDERED: FAMOTIDINE 20MG TAB 20 MG TAB PO SCH (09:00)
== END 2021-03-15 12:38 | disposition home or self-care (01) ==
LOC: DAH 07:20 → DAHIP 07:21 → 4BH 15:14
PROVIDERS: ADMIT Internal Medicine; ATTEND Internal Medicine
DX: N13.5 Crossing vessel and stricture of ureter without hydronephrosis (principal); Z20.822 Contact with and (suspected) exposure to COVID-19; N32.0 Bladder-neck obstruction; C61 Malignant neoplasm of prostate; I44.1 Atrioventricular block, second degree; E78.5 Hyperlipidemia, unspecified; Z79.899 Other long term (current) drug therapy
CPT/HCPCS: 36415 ×3; 52332; 74018; 80048 ×2; 81001; 83735; 84153; 85025; 87088; 93005 ×2; 93306; 93356; 96360; 96361; A4215 ×2; A4216; A4221 ×2; A4222; A4223 ×2; A4354; A4358; A4600; A4663; A6260; C1758; C1769; C2617; C9803; G0378 ×26; J0330; J0696; J1100; J2001; J2405; J2704; J2710; J3010; J3490; J7030; J7120 ×2; U0003; Q9967

== ENCOUNTER 2021-09-26 07:25 | Day surgery (SDC) | payer MEDICARE ==
[2021-09-23 13:00] VITALS: BP 113/66
[2021-09-23 13:13] LABS: APPEARANCE,URINE Turbid (CLEAR); BILIRUBIN,URINE Negative (NEGATIVE); COLOR,URINE Yellow (YELLOW); GLUCOSE, URINE (UA) Negative (NEGATIVE); KETONES,URINE Negative (NEGATIVE); LEUKOCYTE ESTERASE ,URINE Large (NEGATIVE); NITRATE,URINE Negative (NEGATIVE); OCCULT BLOOD,URINE Large (NEGATIVE); PH,URINE 5.5 (5.0-8.0); PROTEIN,URINE POS 2+ mg/dL (NEGATIVE); UROBILINOGEN,URINE 0.2 mg/dL (0.2-1.0)
[2021-09-23 13:19] LABS: BASOPHILS % (AUTO) 0.5 % (0.0-5.0); EOSINOPHILS % (AUTO) 0.7 % (0.0-8.0); HEMATOCRIT 47.2 % (42-54); LYMPHOCYTES % (AUTO) 24.3 % (21.0-51.0); MEAN CORPUSCULAR HEMOGLOBIN 28.6 pg (27.0-33.0); MEAN CORPUSCULAR VOLUME 89.4 fL (79-99); MONOCYTES % (AUTO) 7.4 % (3.0-13.0); NEUTROPHILS % (AUTO) 66.4 % (40.0-77.0); PLATELET COUNT (AUTO) 462 K/uL (130-400); RED BLOOD CELL COUNT(AUTO) 5.28 MIL/uL (4.50-6.20); RED CELL DISTRIBUTION WIDTH 13.5 % (11.0-15.5); WHITE BLOOD COUNT (AUTO) 9.5 K/uL (4.8-10.8)
[2021-09-23 13:29] LABS: PROTHROMBIN TIME 10.9 SEC (9.6-11.6)
[2021-09-23 13:30] LABS: PARTIAL THROMBOPLASTIN TIME 27.9 SEC (26.3-35.5)
[2021-09-23 13:35] LABS: BACTERIA,URINE Rare /HPF (None Seen); RBC,URINE 26-50 /HPF (0-1)
[2021-09-23 13:36] LABS: SQUAMOUS EPITHELIAL CELL,UR Rare /HPF (0-2)
[2021-09-23 13:38] LABS: CREATININE 1.3 mg/dL (0.5-1.5); POTASSIUM 4.3 mmol/L (3.5-5.1)
[~2021-09-26] VITALS: Ht 177.8 cm; Wt 69.2 kg
[2021-09-26] VITALS (16 sets, daily range): BP systolic 119–172; BP diastolic 61–97
[2021-09-26] MEDS ORDERED: GENTAMICIN 80 MG/NS 100 ML PB 100 ML IV PRN (08:00)
[2021-09-26] MEDS ORDERED: LACTATED RINGERS 1000ML 1,000 ML IV ONE (08:40)
[2021-09-26] MEDS: CEFTRIAXONE 1G VIAL IVP ONE ×2 (08:53→09:55)
[2021-09-26] MEDS ORDERED: APIX2.5T PO (08:56)
[2021-09-26] MEDS ORDERED: LIDOCAINE PF 100MG/5ML (2%) SYRINGE 5ML ONE (09:32)
[2021-09-26] MEDS ORDERED: FENTANYL CITRATE PF 50 MCG/1 ML 2ML VIAL ONE (09:33)
[2021-09-26] MEDS ORDERED: PROPOFOL 10 MG/ML 20ML VIAL IV ONE (09:33)
[2021-09-26] MEDS ORDERED: GLYCOPYRROLATE 1 MG/5 ML SYRINGE ONE (09:47)
[2021-09-26] MEDS ORDERED: 0.9%NACL 10ML VIAL ONE (10:05)
[2021-09-26] MEDS ORDERED: PHENYLEPHRINE HCL 10 MG/ML 1ML VIAL IV ONE (10:05)
[2021-09-26] MEDS ORDERED: IOHEXOL-350 50ML VIAL IV ONE (10:14)
== END 2021-09-26 12:10 | disposition home or self-care (01) ==
LOC: DAH 07:25
PROVIDERS: ATTEND Urology
DX: N20.1 Calculus of ureter (principal); N13.5 Crossing vessel and stricture of ureter without hydronephrosis; Z20.822 Contact with and (suspected) exposure to COVID-19; N32.0 Bladder-neck obstruction; N39.3 Stress incontinence (female) (male); I10 Essential (primary) hypertension; I25.2 Old myocardial infarction; E66.01 Morbid (severe) obesity due to excess calories; I48.91 Unspecified atrial fibrillation; E78.5 Hyperlipidemia, unspecified; I45.10 Unspecified right bundle-branch block; I44.0 Atrioventricular block, first degree; Z90.79 Acquired absence of other genital organ(s); Z79.01 Long term (current) use of anticoagulants; Z85.46 Personal history of malignant neoplasm of prostate; Z92.3 Personal history of irradiation; Z79.899 Other long term (current) drug therapy
CPT/HCPCS: 36415; 71045; 74018; 80048; 81001; 84153; 85025; 85610; 85730; 87088; 87635; 93005; 96365; C1769; C2617; C9803; J0696; J1580; J2001; J2370; J2704; J3010; J3490; J7120; Q9967

== ENCOUNTER 2021-09-26 19:28 | Inpatient (IN) | payer MEDICARE ==
[~2021-09-26] VITALS: Ht 177.8 cm; Wt 69.6 kg
[~2021-09-26 19:28] MED LIST changes: +APIX2.5T PO; -PRAV10TA39 PO
[2021-09-26] MEDS ORDERED: ACETAMINOPHEN 500 MG TABLET ONE (21:24)
[2021-09-26] MEDS ORDERED: ZOSYN 3.375GM+NS 50ML 50 ML ONE (21:24)
[2021-09-26 21:27] LABS: ABG BASE EXCESS -2.1 mmol/L (-2.0-3.0); ABG OXYGEN SATURATION 94.8 % (95.0-99.0); ABG PCO2 32 mmHg (35-48)
[2021-09-26 21:30] LABS: APPEARANCE,URINE Cloudy (CLEAR); BILIRUBIN,URINE Negative (NEGATIVE); COLOR,URINE Yellow (YELLOW); GLUCOSE, URINE (UA) Negative (NEGATIVE); KETONES,URINE Negative (NEGATIVE); LEUKOCYTE ESTERASE ,URINE Moderate (NEGATIVE); NITRATE,URINE Negative (NEGATIVE); OCCULT BLOOD,URINE Large (NEGATIVE); PROTEIN,URINE POS 2+ mg/dL (NEGATIVE); UROBILINOGEN,URINE 0.2 mg/dL (0.2-1.0)
[2021-09-26] MEDS ORDERED: 0.9%NACL 1000ML 1,000 ML IV ONE (21:30)
[2021-09-26] MEDS ORDERED: ZOSYN 3.375GM +NS 50ML IV ONE (21:30)
[2021-09-26] MEDS ORDERED: ACETAMINOPHEN 500 MG TABLET PO ONE (21:30)
[2021-09-26 21:31] LABS: BASOPHILS % (AUTO) 0.2 % (0.0-5.0); EOSINOPHILS % (AUTO) 0.2 % (0.0-8.0); HEMATOCRIT 41.9 % (42-54); LYMPHOCYTES % (AUTO) 4.2 % (21.0-51.0); MEAN CORPUSCULAR HEMOGLOBIN 28.7 pg (27.0-33.0); MEAN CORPUSCULAR HGB CONC 33.2 g/dL (32.0-36.0); MEAN CORPUSCULAR VOLUME 86.4 fL (79-99); MONOCYTES % (AUTO) 6.7 % (3.0-13.0); NEUTROPHILS % (AUTO) 87.7 % (40.0-77.0); PLATELET COUNT (AUTO) 376 K/uL (130-400); RED BLOOD CELL COUNT(AUTO) 4.85 MIL/uL (4.50-6.20); RED CELL DISTRIBUTION WIDTH 13.6 % (11.0-15.5); WHITE BLOOD COUNT (AUTO) 26.9 K/uL (4.8-10.8)
[2021-09-26 21:40] LABS: BACTERIA,URINE Moderate /HPF (None Seen); MUCUS,URINE Few LPF (None Seen); SQUAMOUS EPITHELIAL CELL,UR Moderate /HPF (0-2)
[2021-09-26 21:43] LABS: INR 1.09 (0.85-1.15); PROTHROMBIN TIME 11.8 SEC (9.6-11.6)
[2021-09-26 21:49] LABS: CREATININE 1.5 mg/dL (0.5-1.5); POTASSIUM 4.2 mmol/L (3.5-5.1)
[2021-09-26 21:53] LABS: ALBUMIN 3.3 g/dL (3.5-5.0); BILIRUBIN,TOTAL 0.9 mg/dL (0.2-1.0); TOTAL PROTEIN, SERUM 7.3 g/dL (6.0-8.3)
[2021-09-26 21:56] LABS: B-TYPE NATRIURETIC PEPTIDE 285 pg/mL (0-100)
[2021-09-26] MEDS ORDERED: NITROGLYCERIN 0.4 MG SL TAB SL PRN (23:00)
[2021-09-26] MEDS ORDERED: ONDANSETRON 4MG INJ IV PRN (23:00)
[2021-09-26] MEDS ORDERED: 0.9%NACL 1000ML 1,000 ML IV SCH (23:00)
[2021-09-26] MEDS ORDERED: ACETAMINOPHEN 325 MG TAB PO PRN ×2 (23:00)
[2021-09-27] MEDS ORDERED: AZITHROMYCIN 500MG VIAL IVPB SCH (02:30)
[2021-09-27] MEDS ORDERED: 0.9% NACL 250ML IVPB SCH (02:30)
[2021-09-27] MEDS ORDERED: AZITHROMYCIN 500MG+NS 250ML 250 ML IV ONE (02:38)
[2021-09-27] MEDS: AZITHROMYCIN 500MG+NS 250ML 250 ML IV SCH (02:58)
[2021-09-27] MEDS ORDERED: IPRATROPIUM/ALBUTEROL SULFATE 3 ML SOLUTION IH PRN (03:00)
[2021-09-27 03:57] VITALS: BP 115/48
[2021-09-27 04:29] LABS: BASOPHILS % (AUTO) 0.2 % (0.0-5.0); EOSINOPHILS % (AUTO) 0.1 % (0.0-8.0); HEMATOCRIT 37.8 % (42-54); MEAN CORPUSCULAR HEMOGLOBIN 28.4 pg (27.0-33.0); MEAN CORPUSCULAR HGB CONC 31.7 g/dL (32.0-36.0); MEAN CORPUSCULAR VOLUME 89.4 fL (79-99); NEUTROPHILS % (AUTO) 91.3 % (40.0-77.0); PLATELET COUNT (AUTO) 310 K/uL (130-400); RED BLOOD CELL COUNT(AUTO) 4.23 MIL/uL (4.50-6.20); RED CELL DISTRIBUTION WIDTH 13.8 % (11.0-15.5); WHITE BLOOD COUNT (AUTO) 17.2 K/uL (4.8-10.8)
[2021-09-27] MEDS: ZOSYN 3.375GM +NS 50ML IV SCH ×3 (04:31→21:12)
[2021-09-27 04:45] LABS: CREATININE 1.5 mg/dL (0.5-1.5); POTASSIUM 4.5 mmol/L (3.5-5.1)
[2021-09-27 04:57] LABS: ALBUMIN 2.6 g/dL (3.5-5.0); BILIRUBIN,TOTAL 1.2 mg/dL (0.2-1.0); MAGNESIUM 1.8 mg/dL (1.80-2.40); TOTAL PROTEIN, SERUM 6.1 g/dL (6.0-8.3)
[2021-09-27] MEDS ORDERED: MAGNESIUM 2GM PREMIX 50ML 50 ML IV PRN (05:30)
[2021-09-27] MEDS ORDERED: ATROPINE 1MG SYG IVP ONE (05:42)
[2021-09-27] MEDS ORDERED: 0.9%NACL 1000ML 1,000 ML IV SCH (06:30)
[2021-09-27 08:25] VITALS: BP 124/55
[2021-09-27 12:01] VITALS: BP 110/62
[2021-09-27] MEDS: FAMOTIDINE 20MG TAB PO SCH ×2 (13:29→21:11)
[2021-09-27 16:00] VITALS: BP 141/69
[2021-09-27 19:20] VITALS: BP 140/68
[2021-09-28 00:02] VITALS: BP 119/53
[2021-09-28] MEDS ORDERED: 0.9% NACL 250ML 250 ML ONE (02:35)
[2021-09-28] MEDS: AZITHROMYCIN 500MG+NS 250ML 250 ML IV SCH (02:40)
[2021-09-28 04:00] VITALS: BP 157/72
[2021-09-28 05:49] LABS: BASOPHILS % (AUTO) 0.2 % (0.0-5.0); EOSINOPHILS % (AUTO) 0.4 % (0.0-8.0); HEMATOCRIT 39.3 % (42-54); LYMPHOCYTES % (AUTO) 18.4 % (21.0-51.0); MEAN CORPUSCULAR HEMOGLOBIN 27.8 pg (27.0-33.0); MEAN CORPUSCULAR HGB CONC 32.1 g/dL (32.0-36.0); MEAN CORPUSCULAR VOLUME 86.8 fL (79-99); MONOCYTES % (AUTO) 8.6 % (3.0-13.0); NEUTROPHILS % (AUTO) 71.8 % (40.0-77.0); PLATELET COUNT (AUTO) 335 K/uL (130-400); RED BLOOD CELL COUNT(AUTO) 4.53 MIL/uL (4.50-6.20); RED CELL DISTRIBUTION WIDTH 13.9 % (11.0-15.5); WHITE BLOOD COUNT (AUTO) 9.8 K/uL (4.8-10.8)
[2021-09-28] MEDS: ZOSYN 3.375GM +NS 50ML IV SCH (05:50)
[2021-09-28 06:11] LABS: ALBUMIN 2.8 g/dL (3.5-5.0); BILIRUBIN,TOTAL 0.5 mg/dL (0.2-1.0); CREATININE 1.5 mg/dL (0.5-1.5); MAGNESIUM 2.1 mg/dL (1.80-2.40); POTASSIUM 4.2 mmol/L (3.5-5.1); TOTAL PROTEIN, SERUM 6.5 g/dL (6.0-8.3)
[2021-09-28 08:00] VITALS: BP 139/76
[2021-09-28] MEDS: FAMOTIDINE 20MG TAB PO SCH (09:07)
[2021-09-28 12:15] VITALS: BP 141/76
[2021-09-28] MEDS ORDERED: CIPR500T10 PO (12:48)
== END 2021-09-28 15:15 | disposition home or self-care (01) | DRG 853 ==
LOC: EDH 19:28 → EDHIP 22:30 → 3BH 09-27 02:28 → 4CH 09-27 09:49
PROVIDERS: ADMIT Internal Medicine; ATTEND Internal Medicine
PROC: 0TP98DZ Removal of Intraluminal Device from Ureter, Via Natural or Artificial Opening Endoscopic (ICD-10-PCS; principal; 2021-09-26)
PROC: 0T768DZ Dilation of Right Ureter with Intraluminal Device, Via Natural or Artificial Opening Endoscopic (ICD-10-PCS; 2021-09-26)
DX: A41.9 Sepsis, unspecified organism (principal); J96.01 Acute respiratory failure with hypoxia; N39.0 Urinary tract infection, site not specified; Z20.822 Contact with and (suspected) exposure to COVID-19; N18.31 Chronic kidney disease, stage 3a; I44.1 Atrioventricular block, second degree; I48.0 Paroxysmal atrial fibrillation; I45.10 Unspecified right bundle-branch block; R31.0 Gross hematuria; Z79.01 Long term (current) use of anticoagulants; Z92.3 Personal history of irradiation; Z85.820 Personal history of malignant melanoma of skin; Z85.46 Personal history of malignant neoplasm of prostate; Z87.891 Personal history of nicotine dependence; Z86.73 Personal history of transient ischemic attack (TIA), and cerebral infarction without residual deficits; I12.9 Hypertensive chronic kidney disease with stage 1 through stage 4 chronic kidney disease, or unspecified chronic kidney disease
CPT/HCPCS: 36415; 36600; 71045; 74018; 80048; 80053; 81001; 82550; 82803; 83605; 83690; 83735; 83874; 83880; 84145; 84153; 84484; 85025; 85610; 85730; 87040; 87088; 87635; 93005; 99291; C9803; G0378; J0456; J0461; J2543; J3475; J7050

== ENCOUNTER 2022-03-27 07:02 | Day surgery (SDC) | payer MEDICARE ==
[2022-03-21 12:01] LABS: BASOPHILS % (AUTO) 0.5 % (0.0-5.0); EOSINOPHILS % (AUTO) 0.9 % (0.0-8.0); HEMATOCRIT 42.1 % (42-54); LYMPHOCYTES % (AUTO) 19.8 % (21.0-51.0); MEAN CORPUSCULAR HEMOGLOBIN 27.9 pg (27.0-33.0); MEAN CORPUSCULAR HGB CONC 31.8 g/dL (32.0-36.0); MEAN CORPUSCULAR VOLUME 87.5 fL (79-99); MONOCYTES % (AUTO) 8.5 % (3.0-13.0); NEUTROPHILS % (AUTO) 69.7 % (40.0-77.0); PLATELET COUNT (AUTO) 425 K/uL (130-400); RED BLOOD CELL COUNT(AUTO) 4.81 MIL/uL (4.50-6.20); RED CELL DISTRIBUTION WIDTH 13.5 % (11.0-15.5); WHITE BLOOD COUNT (AUTO) 9.7 K/uL (4.8-10.8)
[2022-03-21 12:02] LABS: APPEARANCE,URINE Clear (CLEAR); BILIRUBIN,URINE Negative (NEGATIVE); COLOR,URINE Yellow (YELLOW); GLUCOSE, URINE (UA) Negative (NEGATIVE); KETONES,URINE Negative (NEGATIVE); LEUKOCYTE ESTERASE ,URINE Small (NEGATIVE); NITRATE,URINE Negative (NEGATIVE); OCCULT BLOOD,URINE Trace (NEGATIVE); PROTEIN,URINE POS 1+ mg/dL (NEGATIVE); UROBILINOGEN,URINE 0.2 mg/dL (0.2-1.0)
[2022-03-21 12:11] LABS: CREATININE 1.5 mg/dL (0.5-1.5); POTASSIUM 4.9 mmol/L (3.5-5.1)
[2022-03-21 12:30] LABS: BACTERIA,URINE Rare /HPF (None Seen); RBC,URINE 0-1 /HPF (0-1)
[2022-03-21 12:31] LABS: SQUAMOUS EPITHELIAL CELL,UR 0-2 /HPF (0-2)
[2022-03-26 11:31] VITALS: BP 134/69
[2022-03-27] VITALS (25 sets, daily range): BP systolic 124–155; BP diastolic 57–84
[~2022-03-27] VITALS: Ht 177.8 cm; Wt 70.0 kg
[~2022-03-27 07:02] MED LIST changes: +AMIO100T4 PO; -APIX2.5T PO; +GENTAMICIN 80 MG/NS 100 ML PB 100 ML IV SCH; +LEVO500T90 PO
[2022-03-27] MEDS ORDERED: LACTATED RINGERS 1000ML 1,000 ML IV ONE (07:40)
[2022-03-27] MEDS ORDERED: IOHEXOL-350 50ML VIAL IV ONE (07:51)
[2022-03-27] MEDS: CEFTRIAXONE 1G VIAL IVP SCH ×2 (07:55→09:00)
[2022-03-27] MEDS ORDERED: PROPOFOL 10 MG/ML 20ML VIAL IV ONE (08:39)
[2022-03-27] MEDS ORDERED: MIDAZOLAM HCL 1 MG/ML 2ML VIAL ONE (08:39)
[2022-03-27] MEDS ORDERED: FENTANYL CITRATE PF 50 MCG/1 ML 2ML VIAL ONE (08:39)
[2022-03-27] MEDS ORDERED: LIDOCAINE PF 100MG/5ML (2%) SYRINGE 5ML ONE (08:39)
[2022-03-27] MEDS ORDERED: EPHEDRINE SULFATE 50 MG/ML AMPULE ONE (09:15)
== END 2022-03-27 15:45 | disposition home or self-care (01) ==
LOC: DAH 07:02
PROVIDERS: ATTEND Urology
DX: N13.5 Crossing vessel and stricture of ureter without hydronephrosis (principal); N32.0 Bladder-neck obstruction; C61 Malignant neoplasm of prostate; E78.5 Hyperlipidemia, unspecified; I48.91 Unspecified atrial fibrillation; I44.2 Atrioventricular block, complete; Z98.890 Other specified postprocedural states
CPT/HCPCS: 36415; 52332; 74018; 80048; 81001; 84153; 85025; 87088; 87635; 93005; A4215; A4221; A4222; A4223; A4358; A4600; C1758; C1769; C2617; C9803; J0696; J2001; J2250; J2704; J3010; J3490; J7030; J7120; J1580; Q9967

== ENCOUNTER 2022-09-11 09:33 | Day surgery (SDC) | payer MEDICARE ==
[2022-09-10 11:27] LABS: BASOPHILS % (AUTO) 0.7 % (0.0-5.0); EOSINOPHILS % (AUTO) 2.4 % (0.0-8.0); HEMATOCRIT 41.1 % (42-54); MEAN CORPUSCULAR HEMOGLOBIN 26.7 pg (27.0-33.0); MEAN CORPUSCULAR HGB CONC 31.1 g/dL (32.0-36.0); MEAN CORPUSCULAR VOLUME 85.8 fL (79-99); MONOCYTES % (AUTO) 11.4 % (3.0-13.0); NEUTROPHILS % (AUTO) 61.8 % (40.0-77.0); PLATELET COUNT (AUTO) 386 K/uL (130-400); RED BLOOD CELL COUNT(AUTO) 4.79 MIL/uL (4.50-6.20); RED CELL DISTRIBUTION WIDTH 14.8 % (11.0-15.5); WHITE BLOOD COUNT (AUTO) 8.6 K/uL (4.8-10.8)
[2022-09-10 11:37] LABS: CREATININE 1.4 mg/dL (0.5-1.5); POTASSIUM 5.1 mmol/L (3.5-5.1)
[2022-09-10 11:48] LABS: APPEARANCE,URINE CLEAR (CLEAR); BILIRUBIN,URINE NEGATIVE (NEGATIVE); COLOR,URINE LIGHT-YELLOW (YELLOW); GLUCOSE, URINE (UA) NEGATIVE (NEGATIVE); KETONES,URINE NEGATIVE (NEGATIVE); LEUKOCYTE ESTERASE ,URINE 25 Leu/uL (NEGATIVE); NITRATE,URINE NEGATIVE (NEGATIVE); OCCULT BLOOD,URINE SMALL (NEGATIVE); PROTEIN,URINE 10 mg/dL (NEGATIVE); UROBILINOGEN,URINE 0.2 mg/dL (0.2-1.0)
[2022-09-10 12:03] LABS: BACTERIA,URINE RARE /HPF (None Seen); MUCUS,URINE RARE LPF (None Seen); SQUAMOUS EPITHELIAL CELL,UR RARE /HPF (0-2)
[2022-09-10 12:33] VITALS: BP 144/72
[2022-09-11] VITALS (15 sets, daily range): BP systolic 116–148; BP diastolic 60–82
[~2022-09-11] VITALS: Ht 177.8 cm; Wt 70.5 kg
[~2022-09-11 09:33] MED LIST changes: +CEFTRIAXONE 1G VIAL IVPB SCH; +LEVO-70 PO; -LEVO500T90 PO; +PRAV10TA39 PO
[2022-09-11] MEDS ORDERED: CEFTRIAXONE 1G VIAL ONE (09:54)
[2022-09-11] MEDS ORDERED: LACTATED RINGERS 1000ML 1,000 ML IV ONE (09:54)
[2022-09-11] MEDS ORDERED: IOHEXOL-350 50ML VIAL IV ONE (11:52)
[2022-09-11] MEDS ORDERED: MIDAZOLAM HCL 1 MG/ML 2ML VIAL ONE (11:56)
[2022-09-11] MEDS ORDERED: LIDOCAINE PF 100MG/5ML (2%) SYRINGE 5ML ONE (11:56)
[2022-09-11] MEDS ORDERED: DEXAMETHASONE SOD PHOSPHATE 10MG/ML 1ML VIAL ONE (11:56)
[2022-09-11] MEDS ORDERED: ONDANSETRON 4MG INJ ONE (11:56)
[2022-09-11] MEDS ORDERED: PROPOFOL 10 MG/ML 20ML VIAL IV ONE (11:56)
[2022-09-11] MEDS ORDERED: FENTANYL CITRATE PF 50 MCG/1 ML 5ML AMP IV ONE (12:20)
[2022-09-11] MEDS ORDERED: KETOROLAC 30MG VIAL (30MG/ML) ONE (12:21)
== END 2022-09-11 14:45 | disposition home or self-care (01) ==
LOC: DAH 09:33
PROVIDERS: ATTEND Urology
DX: N13.5 Crossing vessel and stricture of ureter without hydronephrosis (principal); Z20.822 Contact with and (suspected) exposure to COVID-19; N32.0 Bladder-neck obstruction; C61 Malignant neoplasm of prostate; I44.7 Left bundle-branch block, unspecified; E78.5 Hyperlipidemia, unspecified; I48.91 Unspecified atrial fibrillation; Z79.899 Other long term (current) drug therapy; Z85.46 Personal history of malignant neoplasm of prostate; Z98.890 Other specified postprocedural states
CPT/HCPCS: 80048; 85025; 87088; 84154; 84153; 87426; 81001; 36415; 71045; 93005; 52640; 52332; 74018; A4663 ×2; J7030; C1758 ×2; C1769; C2617; J7120; J3010; J1100; J2001; J0696; J2250; J2704; J2405; J1885; J1580; A4358 ×2; A4215; A6402; A4222; A4221; A4216; A4606; A4223 ×3; A4335 ×2; A4554; A4600; Q9967